=== PATIENT | male | born 1955 | race Caucasian/White ===

== ENCOUNTER 2021-03-27 16:00 | Emergency (ER) | payer OTHER ==
[~2021-03-27] VITALS: Ht 172.7 cm; Wt 64.8 kg
[2021-03-27 16:10] VITALS: BP 146/77
[2021-03-27] MEDS ORDERED: DIPH,PERTUSS(ACELL),TET VAC/PF 0.5 ML IM-VACC ONE ×2 (16:38→17:00)
[2021-03-27] MEDS ORDERED: LIDOCAINE-MPF 1%, 5ML INFIL ONE (18:00)
[2021-03-27] MEDS ORDERED: LIDOCAINE-MPF 1%, 5ML ONE (18:00)
--- NOTE | 2021-03-27 18:46 | NUR ---
REPORT FROM MISSY HALL
--- NOTE | 2021-03-27 18:53 | NUR ---
REPORT TO ISABEL SAMUELS
--- NOTE | 2021-03-27 19:13 | NUR ---
TASK RN: DRESSING APPLIED, PT AMB TO DC DESK WITH ALL QUESTIONS ADDRESSED.
== END 2021-03-27 19:15 | disposition home or self-care (01) ==
LOC: ED 17:20
DX: S01.01XA Laceration without foreign body of scalp, initial encounter (principal); R55 Syncope and collapse; I45.19 Other right bundle-branch block; W18.30XA Fall on same level, unspecified, initial encounter; Y93.89 Activity, other specified; Y92.410 Unspecified street and highway as the place of occurrence of the external cause; Y99.8 Other external cause status
CPT/HCPCS: 12032; 70450; 90471; 90715; 93005

== ENCOUNTER 2021-04-23 13:14 | Emergency (ER) | payer OTHER ==
[~2021-04-23] VITALS: Ht 172.7 cm; Wt 64.9 kg
[2021-04-23 13:20] VITALS: BP 122/81
--- NOTE | 2021-04-23 13:43 | NUR ---
ERMD AT BEDSIDE FOR EVALUATION.
--- NOTE | 2021-04-23 14:10 | NUR ---
Patient given discharge instructions and prescription and they have confirmed that they understand the instructions. Patient ambulatory with steady gait. NAD, all questions answered appropriately, denies additional needs at this time. No personal belongings left in room after discharge.
== END 2021-04-23 14:11 | disposition home or self-care (01) ==
LOC: ED 13:43
DX: H01.001 Unspecified blepharitis right upper eyelid (principal)
CPT/HCPCS: 99283